=== PATIENT | female | born 1975 | race Caucasian/White ===

== ENCOUNTER 2022-01-22 20:59 | Inpatient (IN) | payer OTHER, SELFPAY ==
[2022-01-22] VITALS (12 sets, daily range): BP systolic 134; BP diastolic 77; PULSE 80–99; RESP 18–25; TEMP 37.2; O2SAT 94–98; BMI 27.1
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
[2022-01-22] MEDS: ARIPiprazole 5 MG TABLET PO (21:38)
[2022-01-22 21:49] LABS: Amphetamine Screen Urine Not Detected (Not Detect); Barbiturates, Urine Not Detected (Not Detect); Benzodiazepines Screen Urine Not Detected (Not Detect); Cannabinoid Screen Urine Not Detected (Not Detect); Cocaine Screen Urine Not Detected (Not Detect); Fentanyl, urine Not Detected (Not Detect); Opiate Screen Urine Not Detected (Not Detect); Phencyclidine Screen Urine Not Detected (Not Detect)
--- NOTE | 2022-01-22 21:51 | PC.NURSE ---
Pt was brought on by EMS and [employer] , pt's dad called them d/t pt was being combative and aggressive. EMS reported pt was hospitalized at [facility] d/t her being aggressive and combative. this RN asked the question and pt is delusional and not being able to answer questions accordingly. Pt v/s are stable.
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
[2022-01-22] MEDS: OLANZapine 10 MG VIAL IM (22:45)
--- NOTE | 2022-01-22 22:45 | PC.NURSE ---
security at the bedside to medicated pt. pt remains a 1:1 at this time.
[2022-01-22] MEDS: Haloperidol Lactate 5 MG/ML VIAL 10 MG IM (22:55)
--- NOTE | 2022-01-22 23:19 | PC.NURSE ---
Pt is agitated, combative and RN was not able to obtain V/S and security is at bedside. Pt was chemical restrain by provider order. See paper for further documentation.
[2022-01-23] VITALS (7 sets, daily range): BP systolic 94–117; BP diastolic 45–51; PULSE 59–84; RESP 13–20; TEMP 36.3–36.9; O2SAT 93–96
--- NOTE | 2022-01-23 09:32 | ECG_ITS ---
Test Reason : med clearance Blood Pressure : / mmHG Vent. Rate : 066 BPM Atrial Rate : 066 BPM P-R Int : 170 ms QRS Dur : 088 ms QT Int : 422 ms P-R-T Axes : 025 -16 012 degrees QTc Int : 442 ms Normal sinus rhythm RSR' or QR pattern in V1 suggests right ventricular conduction delay Otherwise normal ECG No previous ECGs available Referred By: Generic ED Physician Electronically Signed By:ALEXANDRO WILKINSON MD
[2022-01-23 09:56] LABS: MANUAL DIFF FLAG NO
[2022-01-23 10:00] LABS: Basophils Absolute Auto 0.1 X10*3/uL (0.0-0.2); Eosinophils Absolute Auto 0.2 X10*3/uL (0.0-0.4); Eosinophils Percent Auto 2.9 % (0-4); Hemoglobin 12.5 g/dl (12.0-16.0); Imm Gran Abs Auto 0.02 X10*3/uL (0.00-0.03); Imm Gran Pct Auto 0.3 % (0.0-0.4); Lymphocytes Absolute Auto 2.1 X10*3/uL (1.2-4.9); Lymphocytes Percent Auto 28.6 % (20-40); Mean Corpuscular HGB Conc 32.9 g/dl (31.0-35.0); Mean Corpuscular Hemoglobin 29.9 pg (27.0-33.0); Mean Corpuscular Volume 90.9 fL (80.0-98.0); Monocytes Absolute Auto 0.7 X10*3/uL (0.1-1.2); Monocytes Percent Auto 9.9 % (2-11); Neutrophils Absolute Auto 4.1 x10*3/uL (2.0-8.3); Neutrophils Percent Auto 57.3 % (45-73); Platelet Count 266 X10*3/uL (160-400); Red Blood Count 4.18 X10*6/uL (4.20-5.50); Red Cell Distribution Width 12.8 % (11.0-16.0); White Blood Count 7.2 X10*3/uL (4.8-10.8)
[2022-01-23 10:26] LABS: COVID-19 Test Negative (Negative); IDNOW Serial# 9DB6401D
[2022-01-23 10:29] LABS: Anion Gap 12 (12-20); Blood Urea Nitrogen 10 mg/dL (9-16); Calcium 8.8 mg/dL (8.4-10.2); Carbon Dioxide 26 mmol/L (22-29); Chloride 106 mmol/L (96-108); Estimated Glomerular Filt Rate > 60; Glucose Random 99 mg/dL (60-115); Sodium 140 mmol/L (135-145)
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
--- NOTE | 2022-01-23 16:48 | PC.NURSE ---
'pt's father called to speak with RN. This RN confirmed with pt if it was okay that we update her father on plan of care. pt states yes i have been saying it is okay to contact my father . informed pt's father that we are waiting for a bed to become available. pt's father states he is hoping to stop to visit pt later this evening.
--- NOTE | 2022-01-23 20:24 | PHA.MEDREC ---
Pharmacy Consult ? Medication Reconciliation Pharmacy has completed the medication reconciliation. Reviewed med rec done by nursing
[2022-01-23] MEDS: LORazepam 1 MG TABLET 2 MG PO (20:56)
[2022-01-23] MEDS: OLANZapine ODT 10 MG TAB.RAPDIS TRANSLINGU (20:56)
--- NOTE | 2022-01-24 05:46 | PC.NURSE ---
Patient slept through the night, no distress observed/reported, behavior non concerning with no episode of behavioral dys-regulation, disposition per [facility] is section 12 inpatient bed search, medication reviewed by psych provider/patient compliant with her medication, VSS, will continue to monitor.
[2022-01-24 06:24] VITALS: BP 114/55; PULSE 86; RESP 16; TEMP 36.8; O2SAT 94
--- NOTE | 2022-01-24 08:27 | PC.NURSE ---
PT REFUSED OLAZAPINE STATING THAT SHE IS NOT GOING TO TAKE MED, I FEEL FINE. I WILL TAKE ONLY IF I TALK TO MY DAD. A MATTER OF FACT I FEEL PERFECTLY FINE. I AM NOT FUCKING TAKE THE MED BECAUSE I FEEL FINE .
--- NOTE | 2022-01-24 08:30 | PC.NURSE ---
PT IS VERY MANIC AND IS AMBULATING IN [address] AND TRYING TO MAKE PHONE CALLS.
--- NOTE | 2022-01-24 09:04 | PC.NURSE ---
PT CALLED HER FATHER ([phone]) AND LEFT A MESSAGE ON HIS VOICE MAIL. PT'S FATHER CALLED BACK AND SPOKE TO THIS RN. PT'S FATHER SPOKE TO THIS RN AND STATE THAT HIS UNDERSTANDING WAS THAT PT WOULD BE STARTED ON ABILIFY 6.25MG WHICH PT WAS TAKING AND WHICH WAS A SUCCESS FOR HER. THIS INFO WAS REPORTED TO THE PROVIDER.
[2022-01-24 09:10] VITALS: BP 100/78; PULSE 99; RESP 16; TEMP 36.9; O2SAT 96
--- NOTE | 2022-01-24 10:39 | PC.NURSE ---
PT IS SEEN BY [facility] AND CAN SUPPLY SUPERVISOR (KALI), PT AWARE OF PLAN OF CARE.
--- NOTE | 2022-01-24 12:30 | PC.NURSE ---
pt is manic and is requesting the med abilify. pt has been verbally multi times without any success.
--- NOTE | 2022-01-24 13:14 | PC.NURSE ---
pt is calm at this time so zyprexa im is on hold. aware.
--- NOTE | 2022-01-24 13:33 | PC.NURSE ---
pt is calm and ambulating (i) gait steady in hallway.
--- NOTE | 2022-01-24 16:12 | PC.NURSE ---
assumed care of pt at 1445, pt a&ox3, restless and pacing around ED pod, pt stating she is ready for discharge and would like to speak to provider prior to admission. pt experiencing periodic increased anxiety and agitation, declined meds reports that she can calm herself down, pt is more comfortable w male staff.
[2022-01-24 18:54] VITALS: BP 146/60; PULSE 87; RESP 16; TEMP 36.4; O2SAT 99
[2022-01-24] MEDS: ARIPiprazole 5 MG TABLET PO (19:49)
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
[2022-01-24] MEDS: Melatonin 3 MG TABLET 9 MG PO (21:04)
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
[2022-01-25 09:45] VITALS: BP 102/62; PULSE 85; RESP 18; TEMP 36.5; O2SAT 96
--- NOTE | 2022-01-25 16:00 | PC.NURSE ---
Pt reported that she will only take Abilify 5mg and melatonin. Pt reported that she will be refusing lab work during her stay but will continue with taking her medication.
--- NOTE | 2022-01-25 16:12 | HO.PSYCHPN ---
Subjective Subjective Date of Service: 01/25/22 Reason For Visit: crisis Subjective Notes: Yun Warning and Section 12B Interim History: Record reviewed. Discussed with Nursing. Very irritable with health underwriter. States that she has been running from the wall. Talked about her Clarence being stolen. Labile. Intrusive. Intermittently taking medications. 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 Medication Compliance: Intermittent Side effects from medications: No Attending Groups: Intermittent Review of Systems Acute medical concerns: No Review of Systems Review of Systems Yes Unobtainable due to mental status Mental Status Exam Mental Status Exam Narrative: Appropriately dressed. Labile. Irritable. Intrusive. Pressured speech. Grandiose delusions. No SI. No HI. No evidence of hallucinations. Insight judgment limited Diagnostics Vital Signs (24Hr): Vital Signs - 24 hr 01/24/22 18:54 01/25/22 09:45 Temperature 97.6 F 97.7 F Pulse Rate 87 85 Respiratory Rate 16 18 Blood Pressure 146/60 H 102/62 Pulse Oximetry 99 96 Oxygen Delivery Method Room Air Room Air BMI result Body Mass Index 27.1 Labs Results: 01/23/22 09:52 01/23/22 09:52 Medications Medications Current Medications Acetaminophen (Acetaminophen 325 Mg Tablet) 650 mg PO Q6H PRN PRN Reason: Headache/Pain Mild Scale (1-3) Al Hydroxide/Mg Hydroxide (Magnesium Hydrox/Alum Hydrox 30 Ml Oral.Susp) 30 ml PO Q6H PRN PRN Reason: Heartburn/Nausea Aripiprazole (Aripiprazole 5 Mg Tablet) 5 mg PO BEDTIME [facility] Last Admin: 01/24/22 19:49 Dose: 5 mg Hydroxyzine HCl (Hydroxyzine Hcl 25 Mg Tablet) 25 mg PO Q6H PRN PRN Reason: Anxiety Lorazepam (Lorazepam 1 Mg Tablet) 2 mg PO Q4H PRN PRN Reason: agitation/sleep/anxiety Last Admin: 01/23/22 20:56 Dose: 2 mg Magnesium Hydroxide (Milk Of Magnesia 30 Ml Oral.Susp) 30 ml PO DAILY PRN PRN Reason: Constipation Olanzapine (Olanzapine Odt 10 Mg Tab.Rapdis) 10 mg TRANSLINGU BID [facility] Last Admin: 01/25/22 15:56 Dose: Not Given Pharmacy Consult (Consult Rx Perform Med Rec) 1 each MISCELLANE ONCE PRN PRN Reason: Consult order Trazodone HCl (Trazodone Hcl 50 Mg Tablet) 50 mg PO BEDTIME PRN PRN Reason: Insomnia Allergies Allergies Allergy/AdvReac Type Severity Reaction Status Date / Time aspirin AdvReac Hives Verified 01/23/22 19:35 cantaloupe AdvReac Hives Verified 01/23/22 19:38 lithium AdvReac Gastrointestinal Verified 01/23/22 19:36 Upset quetiapine AdvReac Hives Verified 01/23/22 19:37 Assessment & Plan Assessment & Plan (1) Bipolar 1 disorder, manic, moderate: Status: Acute Code(s): F31.12 - Bipolar disorder, current episode manic without psychotic features, moderate (2) Post traumatic stress disorder (PTSD): Status: Acute Code(s): F43.10 - Post-traumatic stress disorder, unspecified Plan Donna is a 46 year-old woman with hx of Bipolar Disorder. Per [facility] crisis report, police were called to a bar due to pt presenting with manic bx i.e. ?wielding a pool stick,? making verbal threats. Pt had to be handcuffed due to increased agitation, screaming, kicked pool table multiple times, refusing to leave the bar. She consumed one drink prior to this incident. Precipitating factors include that pt was recently hospitalized at [facility] in 12/08/21 and 01/08/22. Per her father, ?I feel like she was released too soon.? Pt has a hx of being on abilify, sees Dr. Cortes in OP setting. No concerns for substance abuse, utox is negative. 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 It appears that abilify was increased to 6.25 mg during recent hospitalization, however pt is only willing to take 5 mg. She is amenable to taking melatonin 9 mg. Pt presents as guarded, says she is not bipolar and is activated due to PTSD. Recommend obtaining further collateral info from pt?s father, OP provider, Dr. Cortes, recent [facility] discharge, and [facility] crisis records. Continue assessment and engagement. Q15 min safety checks, 12B Monitor response to medications. Monitor for safety in the milieu. Discharge on stabilization. Patient seen. Chart reviewed. Discussed with team. Obtain collateral contact info?as needed 01/25/2022: No changes to current regimen I spent minutes with the patient and/or on the patient floor today, greater than?50% of which was spent counseling/coordinating care. Reason for contiued inpatient stay Substantial Risk for: harm to others and inability to function
[2022-01-25 18:00] VITALS: BP 126/70; PULSE 80
[2022-01-25] MEDS: ARIPiprazole 5 MG TABLET PO (19:16)
[2022-01-25] MEDS: traZODone HCL 50 MG TABLET PO (20:40)
[2022-01-26 06:00] VITALS: BP 133/92; PULSE 95; RESP 16; TEMP 36.5; O2SAT 95
--- NOTE | 2022-01-26 13:04 | P.PNPSI_ITS ---
Subjective Subjective Date of Service: 01/26/22 Reason For Visit: crisis Subjective Notes: Section 12B Interim History: Record reviewed. Discussed with Nursing. Overall much calmer today. Less irritable. Apologetic regarding interactions yesterday with fiction writer. Still pressured in speech with flight of ideas, but slightly less than yesterday. Reports medication last night help with sleep and agreeable to continue taking this. Does not want medication during the daytime that could cause her to be sedate. Did discuss at length her significant trauma history and therefore difficulty trusting treatment providers. Has lots of trust with Dr. Cortes whom she has been working with since 2008 and would like her team to discuss her medications and treatment with him so she feels comfortable with the plan. Understands this would be her primary team tomorrow. No overt delusions today. Medication Compliance: Intermittent Side effects from medications: No Attending Groups: Yes Review of Systems Acute medical concerns: No Review of Systems Review of Systems Unremarkable Mental Status Exam Mental Status Exam Narrative: Appropriately dressed. Much less labile today. Not irritable. Speech slightly less pressured. Less flight of ideas. Less grandiose. No SI. No HI. No evidence of hallucinations. Insight judgment limited Diagnostics Vital Signs (24Hr): Vital Signs - 24 hr 01/25/22 18:00 01/26/22 06:00 Temperature 97.7 F Pulse Rate 80 95 Respiratory Rate 16 Blood Pressure 126/70 133/92 H Pulse Oximetry 95 Oxygen Delivery Method Room Air BMI result Body Mass Index 27.1 Labs Results: 01/23/22 09:52 01/23/22 09:52 Medications Medications Current Medications Acetaminophen (Acetaminophen 325 Mg Tablet) 650 mg PO Q6H PRN PRN Reason: Headache/Pain Mild Scale (1-3) Al Hydroxide/Mg Hydroxide (Magnesium Hydrox/Alum Hydrox 30 Ml Oral.Susp) 30 ml PO Q6H PRN PRN Reason: Heartburn/Nausea Aripiprazole (Aripiprazole 5 Mg Tablet) 5 mg PO BEDTIME [facility] Last Admin: 01/25/22 19:16 Dose: 5 mg Hydroxyzine HCl (Hydroxyzine Hcl 25 Mg Tablet) 25 mg PO Q6H PRN PRN Reason: Anxiety Lorazepam (Lorazepam 1 Mg Tablet) 2 mg PO Q4H PRN PRN Reason: agitation/sleep/anxiety Last Admin: 01/23/22 20:56 Dose: 2 mg Magnesium Hydroxide (Milk Of Magnesia 30 Ml Oral.Susp) 30 ml PO DAILY PRN PRN Reason: Constipation Olanzapine (Olanzapine Odt 10 Mg Tab.Rapdis) 10 mg TRANSLINGU BID [facility] Last Admin: 01/26/22 11:03 Dose: Not Given Pharmacy Consult (Consult Rx Perform Med Rec) 1 each MISCELLANE ONCE PRN PRN Reason: Consult order Trazodone HCl (Trazodone Hcl 50 Mg Tablet) 50 mg PO BEDTIME PRN PRN Reason: Insomnia Last Admin: 01/25/22 20:40 Dose: 50 mg Allergies Allergies Allergy/AdvReac Type Severity Reaction Status Date / Time aspirin AdvReac Hives Verified 01/23/22 19:35 cantaloupe AdvReac Hives Verified 01/23/22 19:38 lithium AdvReac Gastrointestinal Verified 01/23/22 19:36 Upset quetiapine AdvReac Hives Verified 01/23/22 19:37 Assessment & Plan Assessment & Plan (1) Bipolar 1 disorder, manic, moderate: Status: Acute Code(s): F31.12 - Bipolar disorder, current episode manic without psychotic features, moderate (2) Post traumatic stress disorder (PTSD): Status: Acute Code(s): F43.10 - Post-traumatic stress disorder, unspecified Plan Donna is a 46 year-old woman with hx of Bipolar Disorder. Per [facility] crisis repo rt, police were called to a bar due to pt presenting with manic bx i.e. ?wielding a pool stick,? making verbal threats. Pt had to be handcuffed due to increased agitation, screaming, kicked pool table multiple times, refusing to leave the bar. She consumed one drink prior to this incident. Precipitating factors include that pt was recently hospitalized at [facility] in 12/08/21 and 01/08/22. Per her father, ?I feel like she was released too soon.? Pt has a hx of being on abilify, sees Dr. Cortes in OP setting. No concerns for substance abuse, utox is negative. 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 It appears that abilify was increased to 6.25 mg during recent hospitalization, however pt is only willing to take 5 mg. She is amenable to taking melatonin 9 mg. Pt presents as guarded, says she is not bipolar and is activated due to PTSD. Recommend obtaining further collateral info from pt?s father, OP provider, Dr. Cortes, recent [facility] discharge, and [facility] crisis records. Continue assessment and engagement. Q15 min safety checks, 12B Monitor response to medications. Monitor for safety in the milieu. Discharge on stabilization. Patient seen. Chart reviewed. Discussed with team. Obtain collateral contact info?as needed 01/25/2022: No changes to current regimen 01/26/2022: Will continue with olanzapine 10 mg at bedtime and discontinue daytime dose, as patient not taking daytime dose. Has lots of trust with Dr. Cortes whom she has been working with since 2008 and would like her team to discuss her medications and treatment with him I spent minutes with the patient and/or on the patient floor today, greater than?50% of which was spent counseling/coordinating care. Reason for contiued inpatient stay Substantial Risk for: rapid decompensation
[2022-01-26] MEDS: hydrOXYzine HCL 25 MG TABLET PO (15:59)
[2022-01-26 16:04] VITALS: BP 126/100; PULSE 88
[2022-01-26] MEDS: ARIPiprazole 5 MG TABLET PO (20:46)
[2022-01-26] MEDS: traZODone HCL 50 MG TABLET PO (20:46)
[2022-01-27 06:00] VITALS: BP 133/71; PULSE 89; RESP 18; O2SAT 96
--- NOTE | 2022-01-27 10:00 | P.PNPSI_ITS ---
Subjective Subjective Date of Service: 01/27/22 Reason For Visit: crisis Interim History: pt floridly manic, with pressured speech, very difficult to interrupt, very tangential and with limited insight. In a disorganized, ramble, patient tries to explain events preceding admission; it's unclear what she thinks happened other than she feels unfairly treated, bullied, arrested 3 times, refers to police hurting her, others not understanding.... Maybe manic issues growing, with final trigger being that she ate 4 edibles to help calm down. 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 Radiology Special Procedure Tech asked about report that the patient was wield ing a pool cue, threatening to patrons at [employer]. Patient said yes that is true... I was being bullied on social media and no one was listening to me...and I was angry at their behavior...i might have made threats... Patient repeated that they were not listening to her and said that Mili's boyfriend bullied her on social media and that Mili would not let her go to the bathroom. This pissed me off. Patient said that she was trying to get a drink therapy but no one would by her drink. She also said that the metal bench patternmaker, Addi May of [employer] was involved, wanting her to leave the [employer]. She said she was sick of his behavior to. Patient said that she has since called him and talked about her having wielded a pool cue and repots he told her he has footage of the event. Patient started getting irritable with blurb writer repeating I am done with this behavior. Patient said she wants discharge and that she refuses to go to court. Saying she does not agree with i t. -she does not think she has bipolar. Will not take any medication for bipolar disorder; will only take medications to help her feel safe (from predatory males). Refuses LIthium, depakote (says allergic and not bipolar); refuses Zyprexa ordered this weekend and only willing to take Abilify 5 mg only; says higher dose gave tardive; she says that although Dr. Prasad prescribed her 7.5 mg, she never took it, only taking 5 mg denies any hx at all of SI, HI, AVH denies alcohol abuse refuses all other medication recs from blurb writer, but is open to Dr Prasad's opinion, her outpt doc since 2008 and only one she trusts; however, she later refused his recommendation to increase Abilfy to 7.5mg saying she is angry at him since he was on vacation while i descended into hel... Mental Status Exam Mental Status Exam Narrative: Pt is alert and oriented; behavior is with highly pressured speech, quickly interchanges between being guarded and accusatory and cooperative and friendly; patient is in emotional distress; dressed in casual attire with unkempt hair, flower in her hair, but adequate hygiene; mood is described as good but affect irritable, intense expansive and labile; eye contact appropriate; Speech is pressured; a little loud; normal prosody; psychomotor agitation present; thought process tangential; Thought content is on not being listened to and being wronged; also jumping from tangent to tangent regarding both various related and unrelated things; some delusional content, paranoid ideations; denies any SI/HI. Denies AVH. Patients insight and judgment are impaired. Diagnostics Vital Signs (24Hr): Vital Signs - 24 hr 01/26/22 16:04 01/27/22 06:00 Pulse Rate 88 89 Respiratory Rate 18 Blood Pressure 126/100 H 133/71 Pulse Oximetry 96 Oxygen Delivery Method Room Air BMI result Body Mass Index 27.1 Labs Results: 01/23/22 09:52 01/23/22 09:52 Medications Medications Current Medications Acetaminophen (Acetaminophen 325 Mg Tablet) 650 mg PO Q6H PRN PRN Reason: Headache/Pain Mild Scale (1-3) Al Hydroxide/Mg Hydroxide (Magnesium Hydrox/Alum Hydrox 30 Ml Oral.Susp) 30 ml PO Q6H PRN PRN Reason: Heartburn/Nausea Aripiprazole (Aripiprazole 5 Mg Tablet) 5 mg PO BEDTIME [facility] Last Admin: 01/26/22 20:46 Dose: 5 mg Hydroxyzine HCl (Hydroxyzine Hcl 25 Mg Tablet) 25 mg PO Q6H PRN PRN Reason: Anxiety Last Admin: 01/26/22 15:59 Dose: 25 mg Lorazepam (Lorazepam 1 Mg Tablet) 2 mg PO Q4H PRN PRN Reason: agitation/sleep/anxiety Last Admin: 01/23/22 20:56 Dose: 2 mg Magnesium Hydroxide (Milk Of Magnesia 30 Ml Oral.Susp) 30 ml PO DAILY PRN PRN Reason: Constipation Olanzapine (Olanzapine Odt 10 Mg Tab.Rapdis) 10 mg TRANSLINGU BEDTIME [facility] Last Admin: 01/26/22 20:49 Dose: Not Given Pharmacy Consult (Consult Rx Perform Med Rec) 1 each MISCELLANE ONCE PRN PRN Reason: Consult order Trazodone HCl (Trazodone Hcl 50 Mg Tablet) 50 mg PO BEDTIME PRN PRN Reason: Insomnia Last Admin: 01/26/22 20:46 Dose: 50 mg Allergies Allergies Allergy/AdvReac Type Severity Reaction Status Date / Time aspirin AdvReac Hives Verified 01/23/22 19:35 cantaloupe AdvReac Hives Verified 01/23/22 19:38 lithium AdvReac Gastrointestinal Verified 01/23/22 19:36 Upset quetiapine AdvReac Hives Verified 01/23/22 19:37 Assessment & Plan Assessment & Plan (1) Bipolar 1 disorder, manic, moderate: Status: Acute Code(s): F31.12 - Bipolar disorder, current episode manic without psychotic features, moderate (2) Post traumatic stress disorder (PTSD): Status: Acute Code(s): F43.10 - Post-traumatic stress disorder, unspecified Plan Donna is a 46 year-old woman with hx of Bipolar Disorder. Per [facility] crisis report, police were called to a bar due to pt presenting with manic bx i.e. ?wielding a pool stick,? making verbal threats. Pt had to be handcuffed due to increased agitation, screaming, kicked pool table multiple times, refusing to leave the bar. She consumed one drink prior to this incident. Precipitating factors include that pt was recently hospitalized at [facility] in 12/08/21 and 01/08/22. Per her father, ?I feel like she was released too soon.? Pt has a hx of being on abilify, sees Dr. Prasad in OP setting. No concerns for substance ab use, utox is negative. 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 It appears that abilify was increased to 6.25 mg during recent hospitalization, however pt is only willing to take 5 mg. She is amenable to taking melatonin 9 mg. Pt presents as guarded, says she is not bipolar and is activated due to PTSD. Recommend obtaining further collateral info from pt?s father, OP provider, Dr. Prasad, recent [facility] discharge, and [facility] crisis records. Continue assessment and engagement. 01/25/2022: No changes to current regimen 01/26/2022: Will continue with olanzapine 10 mg at bedtime and discontinue daytime dose, as patient not taking daytime dose. Has lots of trust with Dr. Prasad whom she has been working with since 2008 and would like her team to discuss her medications and treatment with him 01/27/22 patient floridly manic, no insight, does not think she has bipolar disorder. She agrees that she threaten people with a pool cue at a local [employer] however does not see this as problematic or indicative of manic behavior which she denies. Perhaps Abilify 5 mg will help lower patient's manic symptoms and she will again become safe in the community. Radiology Special Procedure Tech spoke with outpatient provider Dr. 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 He also shares that patient has history of being a being stable for a decade. In 2019 at patient's request lowered Abilify to 5 mg. She was supposed to have an office visit with Dr. Prasad last week but did not show up. He reports history of non medication adherence. Med trials: [facility]: Nausea vomiting, rash; Seroquel caused rash; Depakote cognitive effects. History of Topamax for weight loss Plan: 12B Q15 min safety checks, Continue Abilify 5 mg q.h.s. Discontinue Zyprexa as patient refuses it will seek collateral from her father who may be able to get her to take increased dose of medication. Monitor response to medications. Monitor for safety in the milieu. Discharge on stabilization. Patient seen. Chart reviewed. Discussed with team. Obtain collateral contact info?as needed Med trials: [facility]: Nausea vomiting, rash; Seroquel caused rash; Depakote cognitive effects. History of Topamax for weight loss I spent minutes with the patient and/or on the patient floor today, greater than?50% of which was spent counseling/coordinating care. Patient educated on: diagnosis and medication risk/benefits Informed Consent: does not understand Reason for contiued inpatient stay Substantial Risk for: harm to others and rapid decompensation
[2022-01-27 18:00] VITALS: BP 113/72; PULSE 92
[2022-01-27] MEDS: Melatonin 3 MG TABLET PO (20:08)
[2022-01-27] MEDS: ARIPiprazole 5 MG TABLET PO (20:08)
[2022-01-27] MEDS: hydrOXYzine HCL 25 MG TABLET PO (23:53)
[2022-01-28 06:00] VITALS: BP 101/72; PULSE 87; RESP 16; TEMP 36.3; O2SAT 95
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
[2022-01-28 16:47] VITALS: BP 119/68; PULSE 84; RESP 18; O2SAT 96
[2022-01-28] MEDS: ARIPiprazole 5 MG TABLET 7.5 MG PO (20:14)
[2022-01-28] MEDS: Melatonin 3 MG TABLET PO (23:11)
[2022-01-29 06:00] VITALS: BP 120/66; PULSE 99; RESP 18; TEMP 36.7; O2SAT 98
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
[2022-01-29 20:45] VITALS: BP 105/50; PULSE 76; TEMP 36.4
[2022-01-29] MEDS: ARIPiprazole 5 MG TABLET 7.5 MG PO (20:52)
[2022-01-29] MEDS: Melatonin 3 MG TABLET PO (22:08)
[2022-01-30 06:00] VITALS: BP 149/102; PULSE 85; RESP 16; TEMP 36.4; O2SAT 95
[2022-01-30 10:08] LABS: Influenza A PCR NEGATIVE (Negative); Influenza B PCR NEGATIVE (Negative); Resp Syncy Virus RNA Qual PCR NEGATIVE (Negative); SARS COV2 PCR INHOUSE NEGATIVE (Negative)
--- NOTE | 2022-01-30 15:19 | P.PNPSI_ITS ---
Subjective Subjective Date of Service: 01/30/22 Reason For Visit: crisis Interim History: Patient was more calm until technical proposal writer expressed concerns about her discharge. At that point patient proved Manic, accusatory, and started rambling with angry diatribe about sexism, others discharged because they had a penis, no once listening to her; patient goes through her history with extreme circ umstantiality and tangentiality making it difficult to follow. Patient demanding discharge. While she agrees with reports about her behaviors in the community, including threatening with a pool cue, being arrested, going into stores and upsetting people, she is insistent that it is because of other people's bad behaviors. Father visited during session and patient was angry at him for not agreeing with her. Farm Loan Representative later talked with her father who agreed that patient is out of control, said that he has had to get up at all different times, race to some place in the community to help diffuse ruckus she is causing in a store; he says he has luckily met with the police right before they were about to grab her in some store and was able to explain that she is having a manic episode. He said that police told him they have been following her all day long, being called by store after store to come and deal with her disruption. Father says patient is on the verge of alienating a very beloved [employer] community by her behaviors. He feels that she definitely needs to remain on the unit for more treatment. Mental Status Exam Mental Status Exam Narrative: Pt is alert and oriented; behavior is with pressured speech, momentarily cooperative and friendly until disagreed with, than intense, glaring, yelling; dressed in casual attire with combed hair, flower in her hair, but adequate hygiene; mood is described as it depends and affect congruent, labile; eye contact appropriate; Speech is pressured with intermittently high volume; normal prosody; psychomotor agitation pacing, getting up from her chair and walking around the room yelling; thought process can be goal oriented however is extremely circumstantial and also tangential; Thought content is on how she is being wrongly hospitalized, how no one is listening to her and that she is not being respected; wanting discharge to get back to her life; some paranoid ideations expressed about police harassing her; easily misinterpreting others; denies any SI/HI. Denies AVH. Patients insight and judgment are impaired. Diagnostics Vital Signs (24Hr): Vital Signs - 24 hr 01/29/22 20:45 01/30/22 06:00 Temperature 97.6 F 97.6 F Pulse Rate 76 85 Respiratory Rate 16 Blood Pressure 105/50 L 149/102 H Pulse Oximetry 95 Oxygen Delivery Method Room Air BMI result Body Mass Index 27.1 Labs Results: 01/23/22 09:52 01/23/22 09:52 Labs: Laboratory Results - last 48 hr 01/30/22 08:41 Influenza Type A (PCR) NEGATIVE Influenza Type B (PCR) NEGATIVE RSV RNA Qual (PCR) NEGATIVE SARS-CoV-2 RNA (RT-PCR) NEGATIVE Medications Medications Current Medications Acetaminophen (Acetaminophen 325 Mg Tablet) 650 mg PO Q6H PRN PRN Reason: Headache/Pain Mild Scale (1-3) Al Hydroxide/Mg Hydroxide (Magnesium Hydrox/Alum Hydrox 30 Ml Oral.Susp) 30 ml PO Q6H PRN PRN Reason: Heartburn/Nausea Aripiprazole (Aripiprazole 5 Mg Tablet) 7.5 mg PO BEDTIME SHANE Last Admin: 01/29/22 20:52 Dose: 7.5 mg Hydroxyzine HCl (Hydroxyzine Hcl 25 Mg Tablet) 25 mg PO Q6H PRN PRN Reason: Anxiety Last Admin: 01/27/22 23:53 Dose: 25 mg Lorazepam (Lorazepam 1 Mg Tablet) 2 mg PO Q4H PRN PRN Reason: agitation/sleep/anxiety Last Admin: 01/23/22 20:56 Dose: 2 mg Magnesium Hydroxide (Milk Of Magnesia 30 Ml Oral.Susp) 30 ml PO DAILY PRN PRN Reason: Constipation Melatonin (Melatonin 3 Mg Tablet) 3 mg PO BEDTIME SHANE Last Admin: 01/29/22 22:08 Dose: 3 mg Pharmacy Consult (Consult Rx Perform Med Rec) 1 each MISCELLANE ONCE PRN PRN Reason: Consult order Trazodone HCl (Trazodone Hcl 50 Mg Tablet) 50 mg PO BEDTIME PRN PRN Reason: Insomnia Last Admin: 01/26/22 20:46 Dose: 50 mg Allergies Allergies Allergy/AdvReac Type Severity Reaction Status Date / Time aspirin AdvReac Hives Verified 01/23/22 19:35 cantaloupe AdvReac Hives Verified 01/23/22 19:38 lithium AdvReac Gastrointestinal Verified 01/23/22 19:36 Upset quetiapine AdvReac Hives Verified 01/23/22 19:37 Assessment & Plan Assessment & Plan (1) Bipolar 1 disorder, manic, moderate: Status: Acute Code(s): F31.12 - Bipolar disorder, current episode manic without psychotic features, moderate (2) Post traumatic stress disorder (PTSD): Status: Acute Code(s): F43.10 - Post-traumatic stress disorder, unspecified Plan Donna is a 46 year-old woman with hx of Bipolar Disorder. Per [facility] crisis report, police were called to a bar due to pt presenting with manic bx i.e. ?wielding a pool stick,? making verbal threats. Pt had to be handcuffed due to increased agitation, screaming, kicked pool table multiple times, refusing to leave the bar. She consumed one drink prior to this incident. Precipitating factors include that pt was recently hospitalized at [facility] in 12/08/21 and 01/08/22. Per her father, ?I feel like she was released too soon.? Pt has a hx of being on abilify, sees Dr. Cortes in OP setting. No concerns for substance abuse, utox is negative. 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 It appears that abilify was increased to 6.25 mg during recent hospitalization, however pt is only willing to take 5 mg. She is amenable to taking melatonin 9 mg. Pt presents as guarded, says she is not bipolar and is activated due to PTSD. Recommend obtaining further collateral info from pt?s father, OP provider, Dr. Cortes, recent [facility] discharge, and [facility] crisis records. Continue assessment and engagement. 01/25/2022: No changes to current regimen 01/26/2022: Will continue with olanzapine 10 mg at bedtime and discontinue daytime dose, as patient not taking daytime dose. Has lots of trust with Dr. Cortes whom she has been working with since 2008 and would like her team to discuss her medications and treatment with him 01/27/22 patient floridly manic, no insight, does not think she has bipolar disorder. She agrees that she threaten people with a pool cue at a local [employer] however does not see this as problematic or indicative of manic behavior which she denies. Perhaps Abilify 5 mg will help lower patient's manic symptoms and she will again become safe in the community. Farm Loan Representative spoke with outpatient provider Dr. 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 He also shares that patient has history of being a being stable for a decade. In 2019 at patient's request lowered Abilify to 5 mg. She was supposed to have an office visit with Dr. Cortes last week but did not show up. He reports history of non medication adherence. Med trials: [place]: Nausea vomiting, rash; Seroquel caused rash; Depakote cognitive effects. History of Topamax for weight loss 01/28 initially patient floridly manic, pressured speech, poor insight and refusing to increased Abilify. Patient later calmed down and felt she was able to trust this plan, signed a CV and agreed to take Abilify 7.5 mg (certified legal secretary specialist from Dr. Cortes's office called and relayed message from Dr. Cortes which soothed patient and helped her trust plan). Patient soon signed a 3 day notice but did so also commenting that she is thankful for technical proposal writer's help. -it seems that patient has been stable on Abilify 2.5 mg for several years, able to achieve several professional accomplishments; she said she has been taking this low-dose despite being prescribed 5 mg. However it seems that with significantly stressful events, this low-dose is not able to help her remains stable and stress over this past summer seems to have pushed her over into manic episode. 01/29 still manic but less so, more organized more linear and cooperative; behaviors improved on the unit. Patient tolerated Abilify 7.5 mg and expresses gratitude for help received 01/30 still manic and very easily triggered into extreme anger, yelling, accusing, with very little insight into her behaviors, insisting that everyone else is having bad behavior and disrespecting her. Refuses to take more medication; demands discharge and angry that she is not being discharged readily. Patient has given technical proposal writer a list of close to 10 people in her life that she wants technical proposal writer to call; she later said she did not want technical proposal writer to call any of them but just 1 of them Plan: CV; 3 day notice Q15 min safety checks, Continue Abilify 7.5 mg q.h.s. Monitor response to medications. Monitor for safety in the milieu. Discharge on stabilization. Patient seen. Chart reviewed. Discussed with team. Obtain collateral contact info?as needed Med trials: [place]: Nausea vomiting, rash; Seroquel caused rash; Depakote cognitive effects. History of Topamax for weight loss I spent minutes with the patient and/or on the patient floor today, greater than?50% of which was spent counseling/coordinating care. Patient educated on: diagnosis and medication risk/benefits Informed Consent: does not understand Reason for contiued inpatient stay Substantial Risk for: inability to function and rapid decompensation
[2022-01-30 18:30] VITALS: BP 139/62; PULSE 91
[2022-01-30] MEDS: ARIPiprazole 5 MG TABLET 7.5 MG PO (20:25)
[2022-01-30] MEDS: Melatonin 3 MG TABLET PO (22:25)
[2022-01-31 06:00] VITALS: BP 132/79; PULSE 75; RESP 18; TEMP 36.2; O2SAT 98
[2022-01-31] MEDS: LORazepam 1 MG TABLET PO (14:32)
--- NOTE | 2022-01-31 17:58 | HO.PSYCHPN ---
Subjective Subjective Date of Service: 01/31/22 Reason For Visit: crisis Interim History: Patient remains manic, disorganized in speech, forcefully yelling, banging on doors; patient is irate that she is not being discharged and denies she has any manic behaviors. She told policy writer sales to call security to come in restrain her and rape her. Remains perseverative on being disrespected and not listened to. After few hours patient calm down and said she will be calm and what ever medications policy writer sales thought best. She only agreed to taking Ativan however that was a start. Patient asked what she needed to do to be discharged and though it was difficult to explain given her limited insight, policy writer sales explained how her reactivity was so extreme, volatile and even threatening and this type of behavior/reaction has been getting her into much trouble in the community and that this is a focal point of change. Mental Status Exam Mental Status Exam Narrative: Pt is alert and oriented; behavior is with pressured speech, momentarily cooperative and friendly until disagreed with, than intense, glaring, yelling; dressed in casual attire with combed hair, flower in her hair, but adequate hygiene; mood is described as it depends and affect congruent, labile; eye contact appropriate; Speech is pressured with intermittently high volume; normal prosody; psychomotor agitation pacing, getting up from her chair and walking around the room yelling; thought process can be goal oriented however is extremely circumstantial and also tangential; Thought content is on how she is being wrongly hospitalized, how no one is listening to her and that she is not being respected; wanting discharge to get back to her life; some paranoid ideations expressed about police harassing her; easily misinterpreting others; denies any SI/HI. Denies AVH. Patients insight and judgment are impaired. Diagnostics Vital Signs (24Hr): Vital Signs - 24 hr 01/30/22 18:30 01/31/22 06:00 Temperature 97.2 F Pulse Rate 91 75 Respiratory Rate 18 Blood Pressure 139/62 132/79 Pulse Oximetry 98 Oxygen Delivery Method Room Air BMI result Body Mass Index 27.1 Labs Results: 01/23/22 09:52 01/23/22 09:52 Labs: Laboratory Results - last 48 hr 01/30/22 08:41 Influenza Type A (PCR) NEGATIVE Influenza Type B (PCR) NEGATIVE RSV RNA Qual (PCR) NEGATIVE SARS-CoV-2 RNA (RT-PCR) NEGATIVE Medications Medications Current Medications Acetaminophen (Acetaminophen 325 Mg Tablet) 650 mg PO Q6H PRN PRN Reason: Headache/Pain Mild Scale (1-3) Al Hydroxide/Mg Hydroxide (Magnesium Hydrox/Alum Hydrox 30 Ml Oral.Susp) 30 ml PO Q6H PRN PRN Reason: Heartburn/Nausea Aripiprazole (Aripiprazole 5 Mg Tablet) 7.5 mg PO BEDTIME SHANE Last Admin: 01/30/22 20:25 Dose: 7.5 mg Hydroxyzine HCl (Hydroxyzine Hcl 25 Mg Tablet) 25 mg PO Q6H PRN PRN Reason: Anxiety Last Admin: 01/27/22 23:53 Dose: 25 mg Lorazepam (Lorazepam 1 Mg Tablet) 2 mg PO Q4H PRN PRN Reason: agitation/sleep/anxiety Last Admin: 01/23/22 20:56 Dose: 2 mg Lorazepam (Lorazepam 1 Mg Tablet) 1 mg PO BID@0900,1400 SHANE Lorazepam (Lorazepam 1 Mg Tablet) 2 mg PO BEDTIME SHANE Magnesium Hydroxide (Milk Of Magnesia 30 Ml Oral.Susp) 30 ml PO DAILY PRN PRN Reason: Constipation Melatonin (Melatonin 3 Mg Tablet) 3 mg PO BEDTIME SHANE Last Admin: 01/30/22 22:25 Dose: 3 mg Pharmacy Consult (Consult Rx Perform Med Rec) 1 each MISCELLANE ONCE PRN PRN Reason: Consult order Trazodone HCl (Trazodone Hcl 50 Mg Tablet) 50 mg PO BEDTIME PRN PRN Reason: Insomnia Last Admin: 01/26/22 20:46 Dose: 50 mg Allergies Allergies Allergy/AdvReac Type Severity Reaction Status Date / Time aspirin AdvReac Hives Verified 01/23/22 19:35 cantaloupe AdvReac Hives Verified 01/23/22 19:38 lithium AdvReac Gastrointestinal Verified 01/23/22 19:36 Upset quetiapine AdvReac Hives Verified 01/23/22 19:37 Assessment & Plan Assessment & Plan (1) Bipolar 1 disorder, manic, moderate: Status: Acute Code(s): F31.12 - Bipolar disorder, current episode manic without psychotic features, moderate (2) Post traumatic stress disorder (PTSD): Status: Acute Code(s): F43.10 - Post-traumatic stress disorder, unspecified Plan Donna is a 46 year-old woman with hx of Bipolar Disorder. Per [facility] crisis report, police were called to a bar due to pt presenting with manic bx i.e. ?wielding a pool stick,? making verbal threats. Pt had to be handcuffed due to increased agitation, screaming, kicked pool table multiple times, refusing to leave the bar. She consumed one drink prior to this incident. Precipitating factors include that pt was recently hospitalized at [facility] in 12/08/21 and 01/08/22. Per her father, ?I feel like she was released too soon.? Pt has a hx of being on abilify, sees Dr. Cortes in OP setting. No concerns for substance abuse, utox is negative. 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 It appears that abilify was increased to 6.25 mg during recent hospitalization, however pt is only willing to take 5 mg. She is amenable to taking melatonin 9 mg. Pt presents as guarded, says she is not bipolar and is activated due to PTSD. Recommend obtaining further collateral info from pt?s father, OP provider, Dr. Cortes, recent [facility] discharge, and [facility] crisis records. Continue assessment and engagement. 01/25/2022: No changes to current regimen 01/26/2022: Will continue with olanzapine 10 mg at bedtime and discontinue daytime dose, as patient not taking daytime dose. Has lots of trust with Dr. Cortes whom she has been working with since 2008 and would like her team to discuss her medications and treatment with him 01/27/22 patient floridly manic, no insight, does not think she has bipolar disorder. She agrees that she threaten people with a pool cue at a local [employer] however does not see this as problematic or indicative of manic behavior which she denies. Perhaps Abilify 5 mg will help lower patient's manic symptoms and she will again become safe in the community. Catering Barista spoke with outpatient provider Dr. 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 He also shares that patient has history of being a being stable for a decade. In 2019 at patient's request lowered Abilify to 5 mg. She was supposed to have an office visit with Dr. Cortes last week but did not show up. He reports history of non medication adherence. Med trials: [place]: Nausea vomiting, rash; Seroquel caused rash; Depakote cognitive effects. History of Topamax for weight loss 01/28 initially patient floridly manic, pressured speech, poor insight and refusing to increased Abilify. Patient later calmed down and felt she was able to trust this plan, signed a CV and agreed to take Abilify 7.5 mg (assistant secretary from Dr. Cortes's office called and relayed message from Dr. Cortes which soothed patient and helped her trust plan). Patient soon signed a 3 day notice but did so also commenting that she is thankful for policy writer sales's help. -it seems that patient has been stable on Abilify 2.5 mg for several years, able to achieve several professional accomplishments; she said she has been taking this low-dose despite being prescribed 5 mg. However it seems that with significantly stressful events, this low-dose is not able to help her remains stable and stress over this past summer seems to have pushed her over into manic episode. 01/29 still manic but less so, more organized more linear and cooperative; behaviors improved on the unit. Patient tolerated Abilify 7.5 mg and expresses gratitude for help received 01/30 still manic and very easily triggered into extreme anger, yelling, accusing, with very little insight into her behaviors, insisting that everyone else is having bad behavior and disrespecting her. Refuses to take more medication; demands discharge and angry that she is not being discharged readily. Patient has given policy writer sales a list of close to 10 people in her life that she wants policy writer sales to call; she later said she did not want policy writer sales to call any of them but just 1 of them 01/31 patient manic, with poor insight; patient became volatile and frightening in her extreme angry reaction to any disagreement or different point of view about her behavior. Patient was able to calm down later on and agreed to take Ativan in addition to Abilify 7.5 mg. She said that policy writer sales will come back on Thursday and she will have passed the test. Plan: CV; 3 day notice Q15 min safety checks, Continue Abilify 7.5 mg q.h.s. START Ativan 1mg 0900, 1400 START Ativan 2mg qhs Monitor response to medications. Monitor for safety in the milieu. Discharge on stabilization. Patient seen. Chart reviewed. Discussed with team. Obtain collateral contact info?as needed Med trials: [place]: Nausea vomiting, rash; Seroquel caused rash; Depakote cognitive effects. History of Topamax for weight loss I spent minutes with the patient and/or on the patient floor today, greater than?50% of which was spent counseling/coordinating care. Patient educated on: diagnosis and medication risk/benefits Informed Consent: understands and does not understand Reason for contiued inpatient stay Substantial Risk for: harm to others, inability to function and rapid decompensation
[2022-01-31 19:26] VITALS: BP 134/76; PULSE 89; TEMP 36.6
[2022-01-31] MEDS: ARIPiprazole 5 MG TABLET 7.5 MG PO (20:35)
[2022-01-31] MEDS: LORazepam 1 MG TABLET 2 MG PO (20:35)
[2022-01-31] MEDS: Melatonin 3 MG TABLET PO (20:35)
[2022-02-01 06:00] VITALS: BP 115/70; PULSE 91; RESP 20; TEMP 36.1; O2SAT 98
[2022-02-01] MEDS: LORazepam 1 MG TABLET PO ×2 (08:35→14:24)
[2022-02-01 18:00] VITALS: BP 124/72; PULSE 84; RESP 16; TEMP 36.6; O2SAT 99
[2022-02-01] MEDS: hydrOXYzine HCL 25 MG TABLET PO (18:49)
[2022-02-01] MEDS: LORazepam 1 MG TABLET 2 MG PO ×3 (18:50→20:34)
[2022-02-01] MEDS: ARIPiprazole 5 MG TABLET 7.5 MG PO (19:54)
[2022-02-01] MEDS: Melatonin 3 MG TABLET PO (19:56)
--- NOTE | 2022-02-01 22:25 | P.PNPSI_ITS ---
Subjective Subjective Date of Service: 02/01/22 Reason For Visit: crisis Subjective Notes: Yun Warning and Section 7 Healthcare Proxy: No Guardianship: No Medical Problems Affecting Mental Status: No Interim History: Met with pt's team. Spoke with pt. Says she feels nauseous on ativan 1 mg BID, confirmed by set staff fitter, has been asking for gingerale, Im very med sensitive, in general doesnt like taking medication. Says the 2 mg at bedtime helped with sleep and she is willing to continue but would like a lower dose during the day. Pt discussed several coping skills including dancing, reading, and writing. Pt is calm during interview, walking around with headphones most of the day and d ancing but otherwise no agitation or behavioral concerns. 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 Medication Compliance: Yes Side effects from medications: No Attending Groups: Yes Review of Systems Acute medical concerns: No Medical Review of Systems: unchanged Mental Status Exam Mental Status Exam Narrative: Pt is alert and oriented; behavior is pleasant and appropriate; dressed in casual attire with combed hair, but adequate hygiene; mood is described as good ?and affect congruent, labile; eye contact appropriate; Speech is not particularly pressured; normal prosody;? she is sitting during interview, brought in notebook to share her book ideas. Thought content is on medication, nausea, wanting to be discharged next week. Pt does feel misinterpreted, grandiose/ high ego. denies any SI/HI.?Denies AVH. Patients insight and judgment are impaired. Diagnostics Vital Signs (24Hr): Vital Signs - 24 hr 02/01/22 06:00 02/01/22 18:00 Temperature 96.9 F 97.8 F Pulse Rate 91 84 Respiratory Rate 20 16 Blood Pressure 115/70 124/72 Pulse Oximetry 98 99 Oxygen Delivery Method Room Air Room Air BMI result Body Mass Index 27.1 Labs Results: 01/23/22 09:52 01/23/22 09:52 Medications Medications Current Medications Acetaminophen (Acetaminophen 325 Mg Tablet) 650 mg PO Q6H PRN PRN Reason: Headache/Pain Mild Scale (1-3) Al Hydroxide/Mg Hydroxide (Magnesium Hydrox/Alum Hydrox 30 Ml Oral.Susp) 30 ml PO Q6H PRN PRN Reason: Heartburn/Nausea Aripiprazole (Aripiprazole 5 Mg Tablet) 7.5 mg PO BEDTIME SHANE Last Admin: 02/01/22 19:54 Dose: 7.5 mg Hydroxyzine HCl (Hydroxyzine Hcl 25 Mg Tablet) 25 mg PO Q6H PRN PRN Reason: Anxiety Last Admin: 02/01/22 18:49 Dose: 25 mg Lorazepam (Lorazepam 1 Mg Tablet) 2 mg PO Q4H PRN PRN Reason: agitation/sleep/anxiety Last Admin: 02/01/22 20:34 Dose: 2 mg Lorazepam (Lorazepam 1 Mg Tablet) 2 mg PO BEDTIME SHANE Last Admin: 02/01/22 19:56 Dose: 2 mg Lorazepam (Lorazepam 0.5 Mg Tablet) 0.5 mg PO BID@0900,1400 [facility]ANE Magnesium Hydroxide (Milk Of Magnesia 30 Ml Oral.Susp) 30 ml PO DAILY PRN PRN Reason: Constipation Melatonin (Melatonin 3 Mg Tablet) 3 mg PO BEDTIME SHANE Last Admin: 02/01/22 19:56 Dose: 3 mg Pharmacy Consult (Consult Rx Perform Med Rec) 1 each MISCELLANE ONCE PRN PRN Reason: Consult order Trazodone HCl (Trazodone Hcl 50 Mg Tablet) 50 mg PO BEDTIME PRN PRN Reason: Insomnia Last Admin: 01/26/22 20:46 Dose: 50 mg Allergies Allergies Allergy/AdvReac Type Severity Reaction Status Date / Time aspirin AdvReac Hives Verified 01/23/22 19:35 cantaloupe AdvReac Hives Verified 01/23/22 19:38 lithium AdvReac Gastrointestinal Verified 01/23/22 19:36 Upset quetiapine AdvReac Hives Verified 01/23/22 19:37 Assessment & Plan Assessment & Plan (1) Bipolar 1 disorder, manic, moderate: Status: Acute Code(s): F31.12 - Bipolar disorder, current episode manic without psychotic features, moderate (2) Post traumatic stress disorder (PTSD): Status: Acute Code(s): F43.10 - Post-traumatic stress disorder, unspecified Plan Donna is a 46 year-old woman with hx of Bipolar Disorder. Per [facility] crisis report, police were called to a bar due to pt presenting with manic bx i.e. ?wielding a pool stick,? making verbal threats. Pt had to be handcuffed due to increased agitation, screaming, kicked pool table multiple times, refusing to leave the bar. She consumed one drink prior to this incident. Precipitating factors include that pt was recently hospitalized at [facility] in 12/08/21 and 01/08/22. Per her father, ?I feel like she was released too soon.? Pt has a hx of being on abilify, sees Dr. Cortes in OP setting. No concerns for substance abuse, utox is negative. 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 It appears that abilify was increased to 6.25 mg during recent hospitalization, however pt is only willing to take 5 mg. She is amenable to taking melatonin 9 mg. Pt presents as guarded, says she is not bipolar and is activated due to PTSD. Recommend obtaining further collateral info from pt?s father, OP provider, Dr. Cortes, recent [facility] discharge, and [employer] crisis records. Continue assessment and engagement. 01/25/2022: No changes to current regimen 01/26/2022: Will continue with olanzapine 10 mg at bedtime and discontinue daytime dose, as patient not taking daytime dose. Has lots of trust with Dr. Cortes whom she has been working with since 2008 and would like her team to discuss her medications and treatment with him 01/27/22 patient floridly manic, no insight, does not think she has bipolar disorder. She agrees that she threaten people with a pool cue at a local [employer] [place] however does not see this as problematic or indicative of manic behavior which she denies. Perhaps Abilify 5 mg will help lower patient's manic symptoms and she will again become safe in the community. Gas Plant Repairer spoke with outpatient provider Dr. 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 He also shares that patient has history of being a being stable for a decade. In 2019 at patient's request lowered Abilify to 5 mg. She was supposed to have an office visit with Dr. Cortes last week but did not show up. He reports history of non medication adherence. Med trials: [place]: Nausea vomiting, rash; Seroquel caused rash; Depakote cognitive effects. History of Topamax for weight loss 01/28 initially patient floridly manic, pressured speech, poor insight and refusing to increased Abilify. Patient later calmed down and felt she was able to trust this plan, signed a CV and agreed to take Abilify 7.5 mg (medical secretary receptionist from Dr. Cortes's office called and relayed message from Dr. Cortes which soothed patient and helped her trust plan). Patient soon signed a 3 day notice but did so also commenting that she is thankful for investment underwriter's help. -it seems that patient has been stable on Abilify 2.5 mg for several years, able to achieve several professional accomplishments; she said she has been taking this low-dose despite being prescribed 5 mg. However it seems that with significantly stressful events, this low-dose is not able to help her remains stable and stress over this past summer seems to have pushed her over into manic episode. 01/29 still manic but less so, more organized more linear and cooperative; behaviors improved on the unit. Patient tolerated Abilify 7.5 mg and expresses gratitude for help received 01/30 still manic and very easily triggered into extreme anger, yelling, accusing, with very little insight into her behaviors, insisting that everyone else is having bad behavior and disrespecting her. Refuses to take more medication; demands discharge and angry that she is not being discharged readily. Patient has given investment underwriter a list of close to 10 people in her life that she wants investment underwriter to call; she later said she did not want investment underwriter to call any of them but just 1 of them 01/31 patient manic, with poor insight; patient became volatile and frightening in her extreme angry reaction to any disagreement or different point of view about her behavior. Patient was able to calm down later on and agreed to take Ativan in addition to Abilify 7.5 mg. She said that investment underwriter will come back on Thursday and she will have passed the test. 02/01 Pt is advocating for lower ativan dose due to nausea, indeed has compla ined of nausea all day and asked for gingerale, which alleviates it but she does not want additive effect, will lower dose to 0.5 mg BID but agrees to continue 2 mg dose at bedtime as she thinks she can sleep through it. Pt denies that she is bipolar as she says she does not have a hx of depression and feels personality disorder is more appropriate, as she says she does not like to follow rules and is in general oppositional to authority. She does appear high functioning and able to manipulate situations to get what she wants. Plan: CV; 3 day notice Q15 min safety checks, Continue Abilify 7.5 mg q.h.s. START Ativan 1mg 0900, 1400 START Ativan 2mg qhs Monitor response to medications. Monitor for safety in the milieu. Discharge on stabilization. Patient seen. Chart reviewed. Discussed with team. Obtain collateral contact info?as needed Med trials: [place]: Nausea vomiting, rash; Seroquel caused rash; Depakote cognitive effects. History of Topamax for weight loss I spent minutes with the patient and/or on the patient floor today, greater than?50% of which was spent counseling/coordinating care. Patient educated on: medication risk/benefits and therapeutic strategies Reason for contiued inpatient stay Substantial Risk for: rapid decompensation and med/psych decompensation
[2022-02-02 06:00] VITALS: BP 128/82; PULSE 100; RESP 18; TEMP 36.6; O2SAT 97
[2022-02-02] MEDS: LORazepam 0.5 MG TABLET PO ×2 (08:52→14:27)
--- NOTE | 2022-02-02 13:07 | HO.PSYCHPN ---
Subjective Subjective Date of Service: 02/02/22 Reason For Visit: crisis Subjective Notes: Yun Warning and Section 7 Interim History: Discussed with team, met with pt. She seems calmer in the day. She is sleeping well. Pt advocates for a lower ativan dose because im having a hard time articulating and balancing. I dont mind it at night but in the day it made me uncomfortable. Her best friend and dad visited, went well. Appropriate in interview. Medication Compliance: Yes Side effects from medications: No Attending Groups: Intermittent Review of Systems Acute medical concerns: No Medical Review of Systems: unchanged Mental Status Exam Mental Status Exam Narrative: Pt is alert and oriented; behavior is pleasant and appropriate; dressed in casual attire with combed hair, but adequate hygiene; mood is described as good ?and affect congruent, labile; eye contact appropriate; Speech is not particularly pressured; normal prosody;? she is sitting during interview, brought in notebook to share her book ideas. Thought content is on medication, nausea, wanting to be discharged next week. Pt does feel misinterpreted, grandiose/ high ego. denies any SI/HI.?Denies AVH. Patients insight and judgment are impaired. Diagnostics Vital Signs (24Hr): Vital Signs - 24 hr 02/01/22 18:00 02/02/22 06:00 Temperature 97.8 F 98 F Pulse Rate 84 100 Respiratory Rate 16 18 Blood Pressure 124/72 128/82 Pulse Oximetry 99 97 Oxygen Delivery Method Room Air Room Air BMI result Body Mass Index 27.1 Labs Results: 01/23/22 09:52 01/23/22 09:52 Medications Medications Current Medications Acetaminophen (Acetaminophen 325 Mg Tablet) 650 mg PO Q6H PRN PRN Reason: Headache/Pain Mild Scale (1-3) Al Hydroxide/Mg Hydroxide (Magnesium Hydrox/Alum Hydrox 30 Ml Oral.Susp) 30 ml PO Q6H PRN PRN Reason: Heartburn/Nausea Aripiprazole (Aripiprazole 5 Mg Tablet) 7.5 mg PO BEDTIME SHANE Last Admin: 02/01/22 19:54 Dose: 7.5 mg Hydroxyzine HCl (Hydroxyzine Hcl 25 Mg Tablet) 25 mg PO Q6H PRN PRN Reason: Anxiety Last Admin: 02/01/22 18:49 Dose: 25 mg Lorazepam (Lorazepam 1 Mg Tablet) 2 mg PO BEDTIME SHANE Last Admin: 02/01/22 19:56 Dose: 2 mg Lorazepam (Lorazepam 0.5 Mg Tablet) 0.5 mg PO BID@0900,1400 [facility] Last Admin: 02/02/22 08:52 Dose: 0.5 mg Magnesium Hydroxide (Milk Of Magnesia 30 Ml Oral.Susp) 30 ml PO DAILY PRN PRN Reason: Constipation Melatonin (Melatonin 3 Mg Tablet) 3 mg PO BEDTIME [facility] Last Admin: 02/01/22 19:56 Dose: 3 mg Pharmacy Consult (Consult Rx Perform Med Rec) 1 each MISCELLANE ONCE PRN PRN Reason: Consult order Trazodone HCl (Trazodone Hcl 50 Mg Tablet) 50 mg PO BEDTIME PRN PRN Reason: Insomnia Last Admin: 01/26/22 20:46 Dose: 50 mg Allergies Allergies Allergy/AdvReac Type Severity Reaction Status Date / Time aspirin AdvReac Hives Verified 01/23/22 19:35 cantaloupe AdvReac Hives Verified 01/23/22 19:38 lithium AdvReac Gastrointestinal Verified 01/23/22 19:36 Upset quetiapine AdvReac Hives Verified 01/23/22 19:37 Assessment & Plan Assessment & Plan (1) Bipolar 1 disorder, manic, moderate: Status: Acute Code(s): F31.12 - Bipolar disorder, current episode manic without psychotic features, moderate (2) Post traumatic stress disorder (PTSD): Status: Acute Code(s): F43.10 - Post-traumatic stress disorder, unspecified Plan Donna is a 46 year-old woman with hx of Bipolar Disorder. Per [facility] crisis report, police were called to a bar due to pt presenting with manic bx i.e. ?wielding a pool stick,? making verbal threats. Pt had to be handcuffed due to increased agitation, screaming, kicked pool table multiple times, refusing to leave the bar. She consumed one drink prior to this incident. Precipitating factors include that pt was recently hospitalized at [facility] in 12/08/21 and 01/08/22. Per her father, ?I feel like she was released too soon.? Pt has a hx of being on abilify, sees Dr. Cortes in OP setting. No concerns for substance abuse, utox is negative. 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 It appears that abilify was increased to 6.25 mg during recent hospitalization, however pt is only willing to take 5 mg. She is amenable to taking melatonin 9 mg. Pt presents as guarded, says she is not bipolar and is activated due to PTSD. Recommend obtaining further collateral info from pt?s father, OP provider, Dr. Cortes, recent [facility] discharge, and [facility] crisis records. Continue assessment and engagement. 01/25/2022: No changes to current regimen 01/26/2022: Will continue with olanzapine 10 mg at bedtime and discontinue daytime dose, as patient not taking daytime dose. Has lots of trust with Dr. Cortes whom she has been working with since 2008 and would like her team to discuss her medications and treatment with him 01/27/22 patient floridly manic, no insight, does not think she has bipolar disorder. She agrees that she threaten people with a pool cue at a local [employer] however does not see this as problematic or indicative of manic behavior which she denies. Perhaps Abilify 5 mg will help lower patient's manic symptoms and she will again become safe in the community. Neurology Manager spoke with outpatient provider Dr. 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 He also shares that patient has history of being a being stable for a decade. In 2019 at patient's request lowered Abilify to 5 mg. She was supposed to have an office visit with Dr. Cortes last week but did not show up. He reports history of non medication adherence. Med trials: [place]: Nausea vomiting, rash; Seroquel caused rash; Depakote cognitive effects. History of Topamax for weight loss 01/28 initially patient floridly manic, pressured speech, poor insight and refusing to increased Abilify. Patient later calmed down and felt she was able to trust this plan, signed a CV and agreed to take Abilify 7.5 mg (statistical secretary from Dr. Cortes's office called and relayed message from Dr. Cortes which soothed patient and helped her trust plan). Patient soon signed a 3 day notice but did so also commenting that she is thankful for display card writer's help. -it seems that patient has been stable on Abilify 2.5 mg for several years, able to achieve several professional accomplishments; she said she has been taking this low-dose despite being prescribed 5 mg. However it seems that with significantly stressful events, this low-dose is not able to help her remains stable and stress over this past summer seems to have pushed her over into manic episode. 01/29 still manic but less so, more organized more linear and cooperative; behaviors improved on the unit. Patient tolerated Abilify 7.5 mg and expresses gratitude for help received 01/30 still manic and very easily triggered into extreme anger, yelling, accusing, with very little insight into her behaviors, insisting that everyone else is having bad behavior and disrespecting her. Refuses to take more medication; demands discharge and angry that she is not being discharged readily. Patient has given display card writer a list of close to 10 people in her life that she wants display card writer to call; she later said she did not want display card writer to call any of them but just 1 of them 01/31 patient manic, with poor insight; patient became volatile and frightening in her extreme angry reaction to any disagreement or different point of view about her behavior. Patient was able to calm down later on and agreed to take Ativan in addition to Abilify 7.5 mg. She said that display card writer will come back on Thursday and she will have passed the test. 02/01 Pt is advocating for lower ativan dose due to nausea, indeed has complained of nausea all day and asked for gingerale, which alleviates it but she does not want additive effect, will lower dose to 0.5 mg BID but agrees to continue 2 mg dose at bedtime as she thinks she can sleep through it. Pt denies that she is bipolar as she says she does not have a hx of depression and feels personality disorder is more appropriate, as she says she does not like to follow rules and is in general oppositional to authority. She does appear high functioning and able to manipulate situations to get what she wants. 02/02: Discontinue ativan in the day. Continue dose at bedtime. Plan: CV; 3 day notice Q15 min safety checks, Continue Abilify 7.5 mg q.h.s. START Ativan 1mg 0900, 1400 START Ativan 2mg qhs Monitor response to medications. Monitor for safety in the milieu. Discharge on stabilization. Patient seen. Chart reviewed. Discussed with team. Obtain collateral contact info?as needed Med trials: [place]: Nausea vomiting, rash; Seroquel caused rash; Depakote cognitive effects. History of Topamax for weight loss I spent minutes with the patient and/or on the patient floor today, greater than?50% of which was spent counseling/coordinating care. Patient educated on: medication risk/benefits and therapeutic strategies Reason for contiued inpatient stay Substantial Risk for: rapid decompensation and med/psych decompensation
[2022-02-02 18:00] VITALS: BP 122/76; PULSE 78; RESP 16; TEMP 36.6; O2SAT 98
[2022-02-02] MEDS: Melatonin 3 MG TABLET PO (19:39)
[2022-02-02] MEDS: ARIPiprazole 5 MG TABLET 7.5 MG PO (19:39)
[2022-02-02] MEDS: LORazepam 1 MG TABLET 2 MG PO (19:40)
[2022-02-03 09:13] VITALS: BP 116/55; PULSE 85; RESP 16; TEMP 37; O2SAT 97
--- NOTE | 2022-02-03 12:13 | PM.PSYDC ---
DS: Providers Provider Date of Service: 02/03/22 Date of admission: 01/24/22 17:10 Date of discharge: 02/03/22 Primary care physician: Unknown Physician Attending physician on admission: Tree Rodriguez Attending physician on discharge: Tree Rodriguez DS: Diagnosis Discharge Diagnosis (1) Bipolar 1 disorder, manic, moderate: Status: Acute (2) Post traumatic stress disorder (PTSD): Status: Acute DS: Medications Discharge Medications Home Medications: Previous Rx's Medication Instructions Recorded aripiprazole 5 mg tablet (Abilify) 7.5 mg PO BEDTIME 30 days #45 tabs 02/03/22 lorazepam 1 mg tablet 2 mg PO BEDTIME 7 days #14 tabs 02/03/22 Mental Status Exam Mental Status Exam Narrative: Pt is alert and oriented; behavior is pleasant and appropriate; dressed in casual attire with combed hair, adequate hygiene; mood is described as good ?and affect congruent, more calm; eye contact appropriate; Speech can get a little pressured but she is able to recognize this and slow herself down and listen; normal prosody;? not hyperactive and no psychomotor agitation present; Thought process mostly goal oriented; still circumstantial, but no longer tangential. Thought content is on getting back to her life but also on staying stable and seeing Dr. Cortes tomorrow and overall WNL. No paranoid delusions expressed though she tends to feel misinterpreted; denies any SI/HI.?Denies AVH. Patients insight and judgment are impaired but improved and adequate. Data Data Completed and Pending Completed studies during hospitalization [Text1]: 01/30/22 08:41 Influenza Type A (PCR) NEGATIVE Influenza Type B (PCR) NEGATIVE RSV RNA Qual (PCR) NEGATIVE SARS-CoV-2 RNA (RT-PCR) NEGATIVE DS: Summary Hospital Course Hospital Course: HPI: Donna is a 46 year-old woman with hx of Bipolar Disorder. Per [facility] crisis report, police were called to a bar due to pt presenting with manic bx i.e. ?wielding a pool stick,? making verbal threats. Pt had to be handcuffed due to increased agitation, screaming, kicked pool table multiple times, refusing to leave the bar. She consumed one drink prior to this incident. Precipitating factors include that pt was recently hospitalized at [facility] in 12/08/21 and 01/08/22. Per her father, ?I feel like she was released too soon.? Pt has a hx of being on abilify, sees Dr. Cortes in OP setting. Patient has been consuming alcohol intermittently past few weeks, which seems to have increased mood lability. Pt presents as guarded, says she is not bipolar and is activated due to PTSD. -provider Dr. 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 It seems that on only a very low dose of Abilify, patient was vulnerable to being triggered into a manic episode. Hospital course: On admission, patient was hyperverbal, manic, talking nonstop, guarded and accusatory, without any insight into problematic nature of her recent behaviors including multiple police interventions and ED visits. She refuses any changes in her medication above Abilify 5 mg. Patient Has lots of trust with Dr. Cortes whom she has been working with since 2008 and responded well when his nursery nurse encouraged her to stay in the and increase Abilify. Patient consented to increasing Abilify to 7.5 mg. Patient however remained floridly manic, no insight, does not think she has bipolar disorder.? Patient having negative and verbal altercations with peers on the unit. She agrees that she threaten people with a pool cue at a local [employer] ma[place] however does not see this as problematic or indicative of manic behavior which she denies.? Initially on [address] b. ? Patient later calmed down and felt she was able to trust this plan of Abilify 7.5, signed a CV and agreed to continue with Abilify 7.5 mg (nursery nurse from Dr. Cortes's office called and relayed message from Dr. Cortes which soothed patient and helped her trust plan).? Patient soon signed a 3 day notice but did so also commenting that she is thankful for telegraphic typewriter operator chief's help. Over subsequent days, patient still manic but seemed to be a little less so, and more organized, more linear and cooperative; behaviors improved on the unit.?However, she remained very easily triggered into extreme anger, yelling, accusing and with very little insight into her behaviors, insisting that everyone else is having bad behavior and disrespecting her.?She Refuses to take more medication and eventually demands discharge and angry that she is not being discharged readily.? 01/31 patient manic, with poor insight; patient became volatile and frightening in her extreme angry reaction to any disagreement or different point of view about her behavior.? Patient was able to calm down later on and agreed to take Ativan in addition to Abilify 7.5 mg.? She said that telegraphic typewriter operator chief will come back after the weekend and on Thursday will see that she has passed the test and is able to discharge. She was also able to agree that her behaviors in the community, when frustrated were inappropriate, though continued to assert she was provoked. -over the weekend, covering provider wrote that patient felt Ativan caused some nausea and dose was lowered to 0.5 b.i.d. however she continued to take 2 mg at bedtime which helps her sleep. She continued to deny that she is bipolar as she says she does not have a hx of depression and feels personality disorder is more appropriate, as she says she does not like to follow rules and is in general oppositional to authority. She does appear high functioning and able to manipulate situations to get what she wants. Three day notice came due. With the Ativan, patient was in much better impulse and behavioral control, less manic, still hyperverbal but much more interruptible and able to have a discussion. She had No problems with any peers at all throughout the weekend and was overall appropriate with peers and staff. Patient was able to sit still in calmly during 1 on 1 discussion and self aware that she could become hyperverbal and would slow herself down, redirect herself to listen. Patient very much wanted discharge and said she would remain on the Abilify 7.5 as well as the Ativan and would go see Dr. Cortes. 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 [employer] discussed case with her father who visited about twice a day throught her admission. He felt that patient was significantly better and heading back to her baseline and safe for discharge. [employer] expressed some skepticism, feeling she needed to be on a higher dose of Abilify for longer and that she remains vulnerable to worsening symptoms; however telegraphic typewriter operator chief agreed that based on her improved symptoms and current presentation, she was not in imminent risk for harm to self or others. Patient had no SI or HI at all. Patient has been taking medications consistently and has a very strong rapport with her outpatient provider with whom she has an appointment tomorrow. Patient's request for discharge honored. Med trials:? [place]:? Nausea vomiting, rash; Seroquel caused rash; Depakote cognitive effects.? History of Topamax for weight loss Time spent discussing smoking cessation with patient: 3 to 10 minutes Status at Discharge Functional status at discharge: independent ambulation Overall status at discharge: patient is progressing back to baseline Time Spent with Patient Time attestation: Total time spent providing and/or coordinating discharge services: Time spent: Greater than 30 minutes Discharge Plan Discharge Anticipated Discharge Date/Time: 02/03/22 14:30 Patient Disposition: Home, Self-Care Discharge Diagnosis: Bipolar disorder, recurrent, severe in partial remission Referrals: Psychiatrist: Dr. Cortes ([facility]) [Other] - 02/04/22 1:00 pm [facility] [Other] - 1 Week (*Office will call pt directly w/ follow-up appt* ) Discharge Medications: New aripiprazole [Abilify] 5 mg Tablet 7.5 mg PO BEDTIME 30 Days Qty: 45 0RF lorazepam 1 mg Tablet 2 mg PO BEDTIME 7 Days Qty: 14 0RF Discontinued aripiprazole 5 mg tablet 1.25 tab PO BEDTIME Discharge Orders: Discharge Order (Routine); Ordered 02/03/22 Ordered By: Tree Rodriguez Diet: Regular diet Activity on Discharge: As tolerated Stand Alone Forms: Patient Portal Discharge page, Community Support Other Ambulatory Orders: Hemoglobin A1c (Routine) Timeframe: 1 Week Facility: [facility] - Location: Laboratory Ordered By: Tree Rodriguez Lipid Panel with Reflex (Routine) Timeframe: 1 Week Facility: [facility] - Location: Laboratory Ordered By: Tree Rodriguez Liver Panel (Routine) Timeframe: 1 Week Facility: [facility] - Location: Laboratory Ordered By: Tree Rodriguez Care Plan Goals: Maintain mood and safe behaviors Take medications as prescribed Continue to pursue sobriety Practice coping skills Continue with outpatient providers and reach out to them as needed Health Concerns: Mood stability and behaviors Plan of Treatment: Follow up with your Psychiatric provider and other outpatient providers regarding above concerns Take medications as prescribed Assessment: Risk assessment at time of discharge:? Patient was interviewed prior to discharge and found to be fully oriented and without any SI or HI. Patient has insight and demonstrates good judgment in terms of wanting to pursue treatment. Patient is not in imminent risk of harm to self or others and has a safety plan that includes presenting to the closest ER or calling 911 if feeling unsafe.? Patient has been observed closely by nursing and unit staff throughout admission; patient has not engaged in any behaviors that suggest dangerousness to self or others and has demonstrated appropriate behaviors and impulse control Discharge Date/Time: 02/03/22 14:44
== END 2022-02-03 14:44 | disposition home or self-care (01) | DRG 753 ==
LOC: HO.ED 01-24 17:09 → HO.PM5 01-24 17:11
PROVIDERS: Nurse Practitioner Family; Admitting Provider Registered Nurse; Emergency Provider Student in an Organized Health Care Education/Training Program; Visit Provider Psychiatry & Neurology Psychiatry
DX: F31.12 Bipolar disorder, current episode manic without psychotic features, moderate (principal); F43.10 Post-traumatic stress disorder, unspecified; Z20.822 Contact with and (suspected) exposure to COVID-19; Z88.6 Allergy status to analgesic agent; Z88.8 Allergy status to other drugs, medicaments and biological substances; Z79.899 Other long term (current) drug therapy
CPT/HCPCS: 0241U; 80048; 80307; 85025; 87635; 90792; 93005; 99285